=== PATIENT | male | born 1945 | race Caucasian/White ===

== ENCOUNTER → 2017-05-04 | Outpatient (CLI) | payer OTHER ==
[~2017-05-04] MED LIST: CLARITIN10 MG PO; CRESTOR10 MG PO; MOBIC15 MG PO; SYMBICORT160 MCG/4. INH; VENTOLIN HFA 1818 GM INH
--- NOTE | ~2017-05-04 | EKG ---
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
== END ==
LOC: LITH 11:04
DX: N20.0 Calculus of kidney (principal); E78.00 Pure hypercholesterolemia, unspecified; J45.909 Unspecified asthma, uncomplicated; Z98.890 Other specified postprocedural states; Z88.0 Allergy status to penicillin; Z79.899 Other long term (current) drug therapy